=== PATIENT | male | born 1950 | race Caucasian/White ===

== ENCOUNTER 2019-07-01 09:02 | Emergency (ER) | payer MEDICARE, BC ==
--- NOTE | 2019-07-01 09:54 | EDM.PDOC ---
ED HPI GENERAL MEDICAL PROBLEM - General Chief Complaint: General Stated Complaint: PLUGGED R EAR, DRY HEAVES, DIZZY Time Seen by Provider: 07/01/19 09:40 Source of Information: Reports: Patient, Family History Limitations: Reports: No Limitations - History of Present Illness INITIAL COMMENTS - FREE TEXT/NARRATIVE: 69-year-old male concerned about decreased hearing and a plugged sensation of his right ear along with intermittent vertigo. This morning he was so dizzy that he became nauseated and had dry heaves several times, that seems to have improved. Denies any pain. He has frequent doctor visits and rechecks from cardiology, nephrology, and his primary care physician for ongoing medical problems. Denies fevers or chills, significant cold symptoms, head trauma or falls. Onset: Unknown/Unsure Duration: Week(s): (Symptoms have been ongoing for at least 3 weeks, the increased nausea though was worse today) Associated Symptoms: Reports: Malaise, Nausea/Vomiting, Other (Dizziness and vertigo). Denies: Confusion, Chest Pain, Cough, Diaphoresis, Fever/Chills, Headaches, Shortness of Breath denies Pain Score (Numeric/FACES): 0 - Related Data Allergies Allergy/AdvReac Type Severity Reaction Status Date / Time amlodipine [From [facility]] Allergy Swelling Verified 07/01/19 09:17 Home Meds: Home Meds Aspirin [Children's Aspirin] 81 mg PO DAILY 07/04/15 [History] Carvedilol [Coreg] 25 mg PO BIDMEALS 07/04/15 [History] Nitroglycerin [Nitrostat] 0.4 mg SL ASDIRECTED 07/04/15 [History] atorvaSTATin [Lipitor] 20 mg PO BEDTIME 07/04/15 [History] Torsemide 20 mg PO BID 07/16/15 [History] hydrALAZINE [Apresoline] 100 mg PO BID 12/15/15 [History] Cholecalciferol (Vitamin D3) [Vitamin D3] 1,000 unit PO BID 04/19/18 [History] Past Medical History HEENT History: Reports: Cataract, Impaired Vision, Other (See Below) Other HEENT History: "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" according to patient Cardiovascular History: Reports: CAD, Heart Failure, High Cholesterol, Hypertension, Stents Respiratory History: Reports: Sleep Apnea, Other (See Below) Other Respiratory History: c pap Gastrointestinal History: Reports: None Genitourinary History: Reports: Chronic Renal Insuffiency Musculoskeletal History: Reports: None Neurological History: Reports: CVA Endocrine/Metabolic History: Reports: Diabetes, Type II, Other (See Below) Other Endocrine/Metabolic History: no longer diabetic after wt loss Hematologic History: Reports: Iron Deficiency - Infectious Disease History Infectious Disease History: Reports: Chicken Pox - Past Surgical History HEENT Surgical History: Reports: Eye Surgery, Other (See Below) Other HEENT Surgeries/Procedures: shots in eyes Cardiovascular Surgical History: Reports: Coronary Artery Stent Respiratory Surgical History: Reports: None GI Surgical History: Reports: Colonoscopy Neurological Surgical History: Reports: None Musculoskeletal Surgical History: Reports: Arthroscopic Knee Social & Family History - Family History Family Medical History: Noncontributory - Tobacco Use Smoking Status *Q: Never Smoker Second Hand Smoke Exposure: No - Caffeine Use Caffeine Use: Reports: Soda - Alcohol Use Days Per Week of Alcohol Use: 0 - Recreational Drug Use Recreational Drug Use: No ED ROS GENERAL - Review of Systems Review Of Systems: See Below Constitutional: Denies: Fever, Chills HEENT: Reports: Hearing Loss (Right ear). Denies: Ear Pain (Decreased hearing and a full sensation of the right ear but no pain), Rhinitis Respiratory: Denies: Shortness of Breath, Cough Cardiovascular: Denies: Chest Pain GI/Abdominal: Reports: Nausea, Vomiting. Denies: Abdominal Pain : Reports: No Symptoms Skin: Reports: No Symptoms Neurological: Reports: Dizziness. Denies: Headache ED EXAM, GENERAL - Physical Exam Exam: See Below Exam Limited By: No Limitations General Appearance: Alert, No Apparent Distress Eye Exam: Bilateral Eye: EOMI Ears: Normal TMs, Other (A small scar is on the right TM, both canals are open, no acute inflammation or effusions bilaterally) Head: Atraumatic Neck: Supple, Non-Tender Respiratory/Chest: No Respiratory Distress, Lungs Clear Cardiovascular: Regular Rate, Rhythm GI/Abdominal: Soft, Non-Tender Neurological: Alert, Oriented Psychiatric: Normal Affect, Normal Mood Course - Vital Signs Last Recorded V/S: Last Vital Signs Temp 96.2 F 07/01/19 10:30 Pulse 67 07/01/19 10:30 Resp 16 07/01/19 10:30 BP 173/80 H 07/01/19 10:30 Pulse Ox 97 07/01/19 10:30 - Re-Assessments/Exams Free Text/Narrative Re-Assessment/Exam: 07/01/19 09:[address] without contrast was obtained. 07/01/19 10:45 IMPRESSION: 1. No evidence of acute infarction, intracranial hemorrhage, or mass-effect seen. Dictated by Balta Mckinnon MD @ 07/01/2019 10:41:03 AM Above results were discussed with the patient. He remained asymptomatic while in the emergency room for over an hour. He was discharged with a prescription for 25 mg meclizine to take every 8 hours for dizziness or vertigo, and he is going to keep his appointments his physician next week as scheduled. Departure - Departure Time of Disposition: 11:08 Disposition: Home, Self-Care 01 Clinical Impression: Vertigo Nausea & vomiting Qualifiers: Vomiting type: unspecified Vomiting Intractability: non-intractable Qualified Code(s): R11.2 - Nausea with vomiting, unspecified - Discharge Information Instructions: Vertigo, [id number] Referrals: Kavin Claudio MD [Primary Care Provider] - Forms: ED Department Discharge Care Plan Goals: Continue your current medications, use meclizine as directed up to every 8 hours for persistent dizziness or vertigo and recheck as scheduled. Return sooner anytime if worsening or you develop other concerns. Sepsis Event Note - Evaluation Sepsis Screening Result: No Definite Risk - Focused Exam Vital Signs: Vital Signs Temp Pulse Resp BP Pulse Ox 07/01/19 10:30 96.2 F 67 16 173/80 H 97 07/01/19 09:33 96.4 F 64 16 186/90 H 94 L Date Exam was Performed: 07/01/19 Time Exam was Performed: 13:56
[2019-07-01 10:41] VITALS: BP 173/80; PULSE 67
--- NOTE | 2019-07-01 10:42 | CRLCT ---
INDICATION: Persistent vertigo, history stroke TECHNIQUE: CT Head without i.v. contrast. COMPARISON: 04/06/2015 FINDINGS: CSF space: Unremarkable for age. Brain: A small chronic appearing lacunar infarct is present within the right basal ganglia. Moderate patchy regions of low attenuation are present in the periventricular white matter, likely due to chronic microvascular ischemic changes. No mass-effect or midline shift is seen. Mild diffuse cortical atrophy is noted. There has been interval development of a small focus of encephalomalacia in the left frontal lobe. Calvarium: The visualized paranasal sinuses are well aerated. The mastoid air cells are clear. The visualized orbits are grossly unremarkable. The calvarium is unremarkable in appearance with no fractures identified. IMPRESSION: 1. No evidence of acute infarction, intracranial hemorrhage, or mass-effect seen. Dictated by Balta Mckinnon MD @ 07/01/2019 10:41:03 AM Please note that all CT scans at this facility use dose modulation, iterative reconstruction, and/or weight-based dosing when appropriate to reduce radiation dose to as low as reasonably achievable. Dictated by: Balta Mckinnon MD @ 07/01/2019 10:41:12 (Electronically Signed)
== END 2019-07-01 11:08 | disposition home or self-care (01) ==
LOC: JP.ED 09:02
DX: R42 Dizziness and giddiness (principal); R11.2 Nausea with vomiting, unspecified; I13.0 Hypertensive heart and chronic kidney disease with heart failure and stage 1 through stage 4 chronic kidney disease, or unspecified chronic kidney disease; I50.9 Heart failure, unspecified; I25.10 Atherosclerotic heart disease of native coronary artery without angina pectoris; E78.00 Pure hypercholesterolemia, unspecified; N18.9 Chronic kidney disease, unspecified; E11.22 Type 2 diabetes mellitus with diabetic chronic kidney disease; Z88.8 Allergy status to other drugs, medicaments and biological substances; Z79.82 Long term (current) use of aspirin; Z79.899 Other long term (current) drug therapy; Z86.73 Personal history of transient ischemic attack (TIA), and cerebral infarction without residual deficits
CPT/HCPCS: 70450; 99283; 99284-25

== ENCOUNTER 2021-06-13 09:11 | Emergency (ER) | payer MEDICARE, BC ==
[2021-06-13 09:38] VITALS: BP 165/94; PULSE 61
== END 2021-06-13 10:46 | disposition home or self-care (01) ==
LOC: JP.ED 09:11
DX: M17.12 Unilateral primary osteoarthritis, left knee (principal); M25.462 Effusion, left knee; I25.10 Atherosclerotic heart disease of native coronary artery without angina pectoris; E78.00 Pure hypercholesterolemia, unspecified; I13.0 Hypertensive heart and chronic kidney disease with heart failure and stage 1 through stage 4 chronic kidney disease, or unspecified chronic kidney disease; E11.22 Type 2 diabetes mellitus with diabetic chronic kidney disease; N18.9 Chronic kidney disease, unspecified; I50.9 Heart failure, unspecified; Z88.8 Allergy status to other drugs, medicaments and biological substances; Z79.82 Long term (current) use of aspirin; Z79.899 Other long term (current) drug therapy
CPT/HCPCS: 73562-26-LT; 73562-LT; 99283; 99283-25

== ENCOUNTER 2024-09-11 21:10 | Observation (INO) | payer MEDICARE, BC ==
[2024-09-11] MEDS: HYDROmorphone 0.5 MG/0.5 ML Syringe IVPUSH ONE (23:58)
[2024-09-12 00:10] LABS: BASOPHILS ABSOLUTE AUTO 0.08 K/uL (0.00-0.10); BASOPHILS PERCENT AUTO 0.9 % (0.1-1.3); EOSINOPHILS ABSOLUTE AUTO 0.32 K/uL (0.00-0.40); EOSINOPHILS PERCENT AUTO 3.5 % (0.0-5.4); HEMATOCRIT 31.6 % (38.4-49.7); HEMOGLOBIN 10.5 g/dL (12.9-16.9); IMMATURE GRAN ABSOLUTE AUTO 0.14 K/uL (0.00-0.23); IMMATURE GRAN PERCENT AUTO 1.5 % (0.0-0.7); LYMPHOCYTES ABSOLUTE AUTO 1.44 K/uL (0.8-3.3); LYMPHOCYTES PERCENT AUTO 15.6 % (11.4-47.7); MEAN CORPUSCULAR HEMOGLOBIN 32.8 pg (31.6-35.5); MEAN CORPUSCULAR HGB CONC 33.2 g/dL (31.6-35.5); MEAN CORPUSCULAR VOLUME 98.8 fL (81.4-99.0); MONOCYTES ABSOLUTE AUTO 0.67 K/uL (0.20-0.90); MONOCYTES PERCENT AUTO 7.3 % (3.3-12.6); NEUTROPHILS ABSOLUTE AUTO 6.58 K/uL (1.0-7.6); NEUTROPHILS PERCENT AUTO 71.2 % (40.0-78.1); PLATELET COUNT,PLT 215 K/uL (130-375); WHITE BLOOD CELL COUNT,WBC 9.2 K/uL (3.2-11.0)
[2024-09-12 00:14] LABS: APPEARANCE,URINE CLEAR (CLEAR); BILIRUBIN,URINE NEGATIVE (NEGATIVE); COLOR,URINE YELLOW (YELLOW); GLUCOSE,URINE NEGATIVE (NEGATIVE); KETONES,URINE NEGATIVE (NEGATIVE); LEUKOCYTE ESTERASE,URINE NEGATIVE (NEGATIVE); NITRITE,URINE NEGATIVE (NEGATIVE); OCCULT BLOOD,URINE NEGATIVE (NEGATIVE); PROTEIN,URINE NEGATIVE (NEGATIVE); UROBILINOGEN,URINE 0.2 EU/dL (0.2-1.0)
[2024-09-12 00:20] LABS: AMORPHOUS SEDIMENT,URINE NOT SEEN; BACTERIA,URINE RARE; EPITHELIAL CELLS,URINE NOT SEEN; MUCUS,URINE RARE; RBC,URINE 0-5 (0-5); WBC,URINE 0-5 (0-5)
[2024-09-12 00:22] LABS: A/G RATIO 0.9 (1.2-2.2); ALANINE AMINOTRANSFERASE,ALT 12 U/L (12-78); ALBUMIN 3.5 g/dL (3.4-5.0); ALKALINE PHOSPHATASE 88 U/L (46-116); ANION GAP 12.1 mmol/L (5.0-14.0); ASPARTATE AMNIOTRANSFERASE,AST 13 U/L (15-37); BILIRUBIN TOTAL 0.8 mg/dL (0.2-1.0); BLOOD UREA NITROGEN,BUN 69 mg/dL (7-18); CALCIUM 9.6 mg/dL (8.5-10.1); CARBON DIOXIDE,CO2 28 mmol/L (21-32); CHLORIDE,CL 105 mmol/L (100-108); CREATININE 2.7 mg/dL (0.8-1.3); ESTIMATED GFR 24 mL/min (>60); GLUCOSE RANDOM 115 mg/dL (74-106); PROTEIN TOTAL,TP 7.3 g/dL (6.4-8.2); SODIUM,NA 145 mmol/L (140-148)
[2024-09-12] MEDS: Sodium Chloride 0.9% 1,000 ML IV SCH (00:24)
[2024-09-12] MEDS: HYDROmorphone 0.5 MG/0.5 ML Syringe IVPUSH ONE (03:28)
[2024-09-12] MEDS ORDERED: fentaNYL 250 MCG/5 ML SDV ONE (04:39)
[2024-09-12] MEDS ORDERED: Neostigmine Methylsulfate 10 MG/10 ML MDV ONE (04:40)
[2024-09-12] MEDS ORDERED: Ondansetron 4 MG/2 ML SDV ONE (04:40)
[2024-09-12] MEDS ORDERED: Propofol 200 MG/20 ML SDV ONE (04:40)
[2024-09-12] MEDS ORDERED: Dexamethasone 4 MG/ML SDV ONE (04:40)
[2024-09-12] MEDS ORDERED: Rocuronium 50 MG/5 ML Vial ONE (04:40)
[2024-09-12] MEDS ORDERED: Glycopyrrolate 0.2 MG/ML 5 ML MDV ONE (04:40)
[2024-09-12] MEDS ORDERED: ceFAZolin 1 GM Vial ONE (05:16)
[2024-09-12] MEDS ORDERED: Sodium Chloride 0.9% 10 ML ONE (05:16)
[2024-09-12] MEDS ORDERED: ePHEDrine 50 MG/ML SDV ONE (05:22)
[2024-09-12] MEDS: Bupivacaine 0.25%/EPINEPHrine 1:200,000 30 ML SDV ONE (05:30)
[2024-09-12] MEDS ORDERED: Sennosides/Docusate Sodium 50-8.6 MG Tab PO PRN (09:08)
[2024-09-12] MEDS ORDERED: Magnesium Hydroxide 400 MG/5 ML Susp 30 ML Cup PO PRN (09:08)
[2024-09-12] MEDS ORDERED: oxyCODONE 5 MG Tab PO PRN (09:08)
[2024-09-12] MEDS ORDERED: HYDROmorphone 0.5 MG/0.5 ML Syringe IVPUSH PRN (09:08)
[2024-09-12] MEDS ORDERED: Ondansetron 4 MG Tab.DIS PO PRN (09:08)
[2024-09-12] MEDS: Ondansetron 4 MG/2 ML SDV IV PRN (09:59)
[2024-09-12] MEDS: Lisinopril 5 MG Tab PO SCH (10:37)
[2024-09-12] MEDS: Aspirin 81 MG Tab.EC PO SCH (10:37)
[2024-09-12] MEDS: Carvedilol 12.5 MG Tab PO SCH (17:41)
[2024-09-12] MEDS: atorvaSTATin 20 MG Tab PO SCH (20:24)
[2024-09-12] MEDS: Acetaminophen 325 MG Tab PO PRN (20:24)
[2024-09-12] MEDS: Tamsulosin 0.4 MG Cap.ER PO SCH (20:24)
[2024-09-13 06:01] LABS: HEMATOCRIT 27.1 % (38.4-49.7); HEMOGLOBIN 8.9 g/dL (12.9-16.9); MEAN CORPUSCULAR HGB CONC 32.8 g/dL (31.6-35.5); MEAN CORPUSCULAR VOLUME 100.4 fL (81.4-99.0); RED BLOOD CELL COUNT 2.7 M/uL (4.14-5.76); WHITE BLOOD CELL COUNT,WBC 12.4 K/uL (3.2-11.0)
[2024-09-13 06:15] LABS: ANION GAP 11.1 mmol/L (5.0-14.0); CALCIUM 9.1 mg/dL (8.5-10.1); CREATININE 2.6 mg/dL (0.8-1.3); EST CRCL DRUG DOSING (CG) 21.81 mL/min; POTASSIUM,K 4.2 mmol/L (3.6-5.2)
[2024-09-13 11:21] VITALS: BP 103/69; PULSE 70
== END 2024-09-13 12:20 | disposition home or self-care (01) ==
LOC: JP.ED 21:10 → JP.SDS 09-12 03:56 → JP.MS 09-12 07:20 → JP.SDS 09-12 09:33
PROVIDERS: ADMIT Internal Medicine; ATTEND Internal Medicine
DX: K40.30 Unilateral inguinal hernia, with obstruction, without gangrene, not specified as recurrent (principal); I48.0 Paroxysmal atrial fibrillation; I13.0 Hypertensive heart and chronic kidney disease with heart failure and stage 1 through stage 4 chronic kidney disease, or unspecified chronic kidney disease; E11.22 Type 2 diabetes mellitus with diabetic chronic kidney disease; N18.4 Chronic kidney disease, stage 4 (severe); I50.32 Chronic diastolic (congestive) heart failure; I25.10 Atherosclerotic heart disease of native coronary artery without angina pectoris; N40.1 Benign prostatic hyperplasia with lower urinary tract symptoms; N13.8 Other obstructive and reflux uropathy; E78.00 Pure hypercholesterolemia, unspecified; Z87.891 Personal history of nicotine dependence; Z79.01 Long term (current) use of anticoagulants; Z79.82 Long term (current) use of aspirin; Z79.899 Other long term (current) drug therapy
CPT/HCPCS: 36415; 49507; 51798; 71046; 74176; 80048; 80053; 81001; 83605; 85025; 85027; 93005; A9270; C1758; C1781; J0690; J1100; J1596; J2405; J2704; J2710; J3010; J7030; 93010; 99222; 99238; J3490

== ENCOUNTER 2024-10-07 09:55 | Emergency (ER) | payer MEDICARE, BC ==
[2024-10-07 10:54] LABS: BASOPHILS ABSOLUTE AUTO 0.05 K/uL (0.00-0.10); BASOPHILS PERCENT AUTO 0.3 % (0.1-1.3); EOSINOPHILS ABSOLUTE AUTO 0.15 K/uL (0.00-0.40); EOSINOPHILS PERCENT AUTO 0.8 % (0.0-5.4); HEMATOCRIT 28.3 % (38.4-49.7); HEMOGLOBIN 9.2 g/dL (12.9-16.9); IMMATURE GRAN ABSOLUTE AUTO 0.26 K/uL (0.00-0.23); IMMATURE GRAN PERCENT AUTO 1.4 % (0.0-0.7); LYMPHOCYTES ABSOLUTE AUTO 0.82 K/uL (0.8-3.3); LYMPHOCYTES PERCENT AUTO 4.5 % (11.4-47.7); MEAN CORPUSCULAR HEMOGLOBIN 32.7 pg (31.6-35.5); MEAN CORPUSCULAR HGB CONC 32.5 g/dL (31.6-35.5); MEAN CORPUSCULAR VOLUME 100.7 fL (81.4-99.0); MONOCYTES PERCENT AUTO 8.2 % (3.3-12.6); NEUTROPHILS ABSOLUTE AUTO 15.56 K/uL (1.0-7.6); NEUTROPHILS PERCENT AUTO 84.8 % (40.0-78.1); PLATELET COUNT,PLT 192 K/uL (130-375); RED BLOOD CELL COUNT 2.81 M/uL (4.14-5.76); WHITE BLOOD CELL COUNT,WBC 18.3 K/uL (3.2-11.0)
[2024-10-07] MEDS: Sodium Chloride 0.9% 1,000 ML IV ONE (10:55)
[2024-10-07 11:21] LABS: A/G RATIO 0.9 (1.2-2.2); ALANINE AMINOTRANSFERASE,ALT 11 U/L (12-78); ALKALINE PHOSPHATASE 78 U/L (46-116); ANION GAP 13.4 mmol/L (5.0-14.0); ASPARTATE AMNIOTRANSFERASE,AST 13 U/L (15-37); BILIRUBIN TOTAL 1.2 mg/dL (0.2-1.0); BLOOD UREA NITROGEN,BUN 63 mg/dL (7-18); CARBON DIOXIDE,CO2 27 mmol/L (21-32); CHLORIDE,CL 103 mmol/L (100-108); CREATININE 2.9 mg/dL (0.8-1.3); EST CRCL DRUG DOSING (CG) 20.26 mL/min; ESTIMATED GFR 22 mL/min (>60); GLUCOSE RANDOM 108 mg/dL (74-106); POTASSIUM,K 3.9 mmol/L (3.6-5.2); PRO B-TYPE NATRIUR PEPT,BNPPRO 18557 pg/mL (5-450); PROTEIN TOTAL,TP 6.5 g/dL (6.4-8.2); SODIUM,NA 143 mmol/L (140-148)
[2024-10-07 11:52] LABS: LACTIC ACID 1.2 mmol/L (0.4-2.0)
[2024-10-07] MEDS: Nitroglycerin 2% Oint 1 GM UD Packet TOP ONE (12:04)
[2024-10-07 13:55] LABS: APPEARANCE,URINE SLIGHTLY CLOUDY (CLEAR); BILIRUBIN,URINE NEGATIVE (NEGATIVE); COLOR,URINE YELLOW (YELLOW); GLUCOSE,URINE NEGATIVE (NEGATIVE); KETONES,URINE NEGATIVE (NEGATIVE); LEUKOCYTE ESTERASE,URINE MODERATE (NEGATIVE); NITRITE,URINE POSITIVE (NEGATIVE); OCCULT BLOOD,URINE NEGATIVE (NEGATIVE); PH,URINE 5.5 (5.0-8.0); PROTEIN,URINE 30 mg/dL (NEGATIVE)
[2024-10-07 14:01] LABS: AMORPHOUS SEDIMENT,URINE NOT SEEN; BACTERIA,URINE MANY; EPITHELIAL CELLS,URINE NOT SEEN; MUCUS,URINE NOT SEEN; RBC,URINE NOT SEEN (0-5); WBC,URINE >100 (0-5)
[2024-10-07] MEDS: Sodium Chloride 0.9% 1,000 ML IV SCH (14:45)
[2024-10-07] MEDS: cefTRIAXone 1 GM in Sodium Chloride 0.9% 50 ML IV ONE (14:51)
[2024-10-07 15:33] VITALS: BP 110/67; PULSE 96
[2024-10-07] MEDS: Ondansetron 4 MG Tab.DIS PO ONE (16:17)
== END 2024-10-07 16:45 | disposition home or self-care (01) ==
LOC: JP.ED 09:55
DX: N39.0 Urinary tract infection, site not specified (principal); E86.0 Dehydration; I12.9 Hypertensive chronic kidney disease with stage 1 through stage 4 chronic kidney disease, or unspecified chronic kidney disease; N18.9 Chronic kidney disease, unspecified; E78.00 Pure hypercholesterolemia, unspecified; I25.10 Atherosclerotic heart disease of native coronary artery without angina pectoris; E11.22 Type 2 diabetes mellitus with diabetic chronic kidney disease; R06.9 Unspecified abnormalities of breathing; Z95.5 Presence of coronary angioplasty implant and graft; Z88.8 Allergy status to other drugs, medicaments and biological substances; Z79.82 Long term (current) use of aspirin; Z79.01 Long term (current) use of anticoagulants; Z79.899 Other long term (current) drug therapy
CPT/HCPCS: 36415; 71046; 80053; 81001; 83605; 83880; 85025; 96361; 96365; 99283; J0696; J7030; Q0162